=== PATIENT | female | born 1955 | race Native Hawaiian/Other Pacific Islander ===

== ENCOUNTER 2021-11-12 13:27 | Outpatient (CLI) | payer OTHER | END 2021-11-12 19:05 | disposition home or self-care (01) | LOC: US 13:27 | PROVIDERS: ATTEND Nurse Practitioner Primary Care | DX: R22.9 Localized swelling, mass and lump, unspecified (principal); Z13.820 Encounter for screening for osteoporosis; N95.8 Other specified menopausal and perimenopausal disorders ==